=== PATIENT | female | born 1960 | race African-American/Black ===

== ENCOUNTER 2017-08-11 11:22 | Emergency (ER) | payer MEDICAID, OTHER ==
[~2017-08-11] VITALS: Ht 172.7 cm; Wt 92.1 kg
[~2017-08-11 11:22] MED LIST: BENADRYL25 MG ORAL; EPIPEN 2-P0.3 MG/0.3 IM; HYDROCORTISONE28 G2 TP; MEDROL DOSEPAK4 MG ORAL; NKM; RANITIDINE HCL150 MG ORAL
--- NOTE | 2017-08-11 12:07 | Emergency Room Report ---
History of Present Illness General Chief Complaint: Pain Source: Patient (Vik Hicks) Present Illness HPI 56-year-old female patient presents to ER complaining of swelling on left knee. Reports symptoms have been present for the past 2 months, has previously been seen by primary care provider is still waiting authorizations for further referrals. Reports currently pain is treated with [place] as. Reports was sent by physician to ER today for further treatment because authors sensations of not come through. Patient denies fever, chest pain, vomiting. Denies other acute symptoms. Reports pain with ambulation, states she walks with a cane. Denies acute injury. (Vik Hicks) Allergies: Coded Allergies: PENICILLINS (Unverified Allergy, Unknown, 08/07/13) UNKNOWN Patient History Past Medical History: see triage record Last Menstrual Period: may 2017 Reviewed Nursing Documentation: PMH: Agreed; PSxH: Agreed (Vik Hicks) Nursing Documentation-PMH Past Medical History: No History, Except For Hx Hypertension: Yes Hx Asthma: Yes Hx Diabetes: Yes - DM 2 Hx Gastrointestinal Problems: Yes - Hyperlidemia History Of Psychiatric Problem: Yes - Anxiety, Major depressive disorder Hx Neurological Problems: Yes - Spondylosis wiith radicuploathy of the neck, spinal stenosis of the lower b (Vik Hicks) Review of Systems All Other Systems: negative except mentioned in HPI (Vik Hicks) Physical Exam Vital Signs Date Time Temp Pulse Resp B/P (MAP) Pulse Ox O2 Delivery O2 Flow Rate FiO2 08/11/17 11:36 98.3 71 18 137/79 92 Room Air 98.2 Sp02 EP Interpretation: reviewed, normal General Appearance: well appearing, no apparent distress, alert, GCS 15, non- toxic Head: normocephalic, atraumatic ENT: hearing grossly normal, normal pharynx, no angioedema, normal voice, uvula midline, moist mucus membranes Neck: full range of motion Respiratory: lungs clear, normal breath sounds, no rhonchi, no respiratory distress, no accessory muscle use, no wheezing, speaking full sentences Cardiovascular #1: regular rate, rhythm, no edema Cardiovascular #2: 2+ dorsalis pedis (R), 2+ dorsalis pedis (L) Musculoskeletal: back normal, digits/nails normal, gait/station normal, normal range of motion, other - neurovascularly intact Reflexes: 2+ knee (R), 2+ knee (L) Skin: other - 3cm area of erythema and edema on anterior inferior left knee, no fluctuance, does not come to a point, no drainage, TTP, no open lesion removed, no central clearing, no crepitus, warmth to touch (Vik Hicks) Medical Decision Making PA Attestation Dr. Hanson is my supervising Physician whom patient management has been discussed with. (Vik Hicks) Diagnostic Impression: Primary Impression: Cellulitis ER Course Pt. presents to the ED c/o left knee pain. Ddx considered but are not limited to fracture, sprain, strain, contusion, dislocation cellulitis, effusion. No fever, nontoxic appearing, low suspicion for septic joint. Vital signs: are WNL, pt. is afebrile Ordered X-ray and pain medication. ER COURSE Provided with pain medication. An X-ray of the left knee shows, mild soft tissue swelling, no acute disease per the preliminary reading. consult with Dr. Hanson Evaluated Patient, Likely Cellulitis, Will Provide treatment at discharge. patient reports an allergy to sulfa and penicillins, states she has never taken penicillins before, does not know reaction she has. ER precautions given. Return ER for new or worsening of symptoms including but not limited to fever, chest pain, shortness of breath, intractable vomiting, worsening rash, red streaking. Declines crutches, states she has can she is able to walk with her cane. Patient instructed on RICE method: rest, ice, compression, elevation. Patient instructed on rest, ice and heat. Patient instructed to be WBAT Followup with primary care provider. Discuss referral to ortho/pain management/ PT as needed. Discuss further imaging with MRI/CT as needed. DISCHARGE: -Rx provided for Tylenol -Rx provided for Keflex -Rx provided for clindamycin to cover for MRSA, patient reports allergy so will not provide Bactrim. At this time pt. is stable for d/c to home. Patient is resting comfortably, in no acute distress, nontoxic appearing, talking without difficulty. Will provide printed patient care instructions, and any necessary prescriptions. Patient instructed to follow with primary care provider in 3 - 5 days and to request further follow-up as needed. Care plan and follow up instructions have been discussed with the patient prior to discharge. Take medications as directed. Patient questions asked and answered. Patient reports understanding and agreement to treatment plan. ER precautions given, patient instructed to return to ER immediately for any new or worsening of symptoms. - Please note that this Emergency Department Report was dictated using [employer] sales manager technology software, occasionally this can lead to erroneous entry secondary to interpretation by the dictation equipment. (Vik Hicks) Other X-Ray Diagnostic Results Other X-Ray Diagnostic Results : X-Ray ordered: left knee # of Views/Limited Vs Complete: 3 View Indication: Pain EP Interpretation: Yes PA Xray: Interpretation reviewed, by supervising MD, and agrees with findings. Interpretation: no dislocation, no fractures, other - mild soft tissue swelling Impression: No acute disease PA Scribe Text Twin Hicks PA-C (Vik Hicks.Sandra) Other X-Ray Diagnostic Results : Electronically Signed by: Scribe documentation reviewed by me and is accurate, Bruce Hanson MD. (Bruce Hanson M.D.) Last Vital Signs Date Time Temp Pulse Resp B/P (MAP) Pulse Ox O2 Delivery O2 Flow Rate FiO2 08/11/17 11:36 98.3 71 18 137/79 92 Room Air 98.2 (Vik Hicks.ANahun) Disposition: HOME, SELF-CARE Condition: Stable Scripts Cephalexin* (KEFLEX*) 500 Mg Capsule 500 MG ORAL EVERY 12 HOURS, #14 CAP 0 Refills Prov: Vik Hicks.ANahun 08/11/17 Clindamycin Hcl* (CLINDAMYCIN HCL*) 150 Mg Capsule 300 MG ORAL BID for 7 Days, #28 CAP Prov: Vik Hicks.A. 08/11/17 Acetaminophen* (TYLENOL EXTRA STRENGTH*) 500 Mg Tablet 500 MG ORAL Q8H PRN for Prn Headache/Temp > 101, #30 TAB 0 Refills Prov: Vik Hicks.A. 08/11/17 Patient Instructions: Cellulitis, [id number], Knee Pain, [id number] Additional Instructions: Patient instructed to follow up with primary care provider and discuss further referral to orthopedics. Patient instructed on RICE method: rest, ice, compression, elevation. Patient instructed to WBAT. Take medications as directed. Patient questions asked and answered. ER precautions given, patient instructed to return to ER immediately for any new or worsening of symptoms. Vik Hicks Aug 11, 2017 12:07 Bruce Hanson M.D. Aug 14, 2017 08:48
[2017-08-11] MEDS ORDERED: Norco 5mg/325mg tab ORAL ONE (12:15)
[2017-08-11] MEDS ORDERED: TYLENOL EXTRA500 MG ORAL (13:14)
[2017-08-11] MEDS ORDERED: CLINDAMYCIN HC150 MG ORAL (13:14)
[2017-08-11] MEDS ORDERED: CEPHALEXIN500 MG ORAL (13:18)
[2017-08-11 16:05] VITALS: BP 127/74
--- NOTE | 2017-08-11 18:05 | Diagnostic Imaging Report ---
Indication: Pain Technique: 3 views of the knee Comparison: None Findings: Positioning on both attempts the lateral view suboptimal; patient was discharged before image could be repeated. No definite acute fractures. No dislocations. Joint spaces are preserved Impression: Somewhat limited exam. No definite acute process
== END 2017-08-11 14:00 | disposition home or self-care (01) ==
LOC: EMR 13:33
DX: L03.116 Cellulitis of left lower limb (principal); I10 Essential (primary) hypertension; J45.909 Unspecified asthma, uncomplicated; E11.9 Type 2 diabetes mellitus without complications; E78.5 Hyperlipidemia, unspecified; F41.9 Anxiety disorder, unspecified; Z88.0 Allergy status to penicillin; F32.9 Major depressive disorder, single episode, unspecified
CPT/HCPCS: 99284

== ENCOUNTER 2018-04-24 12:33 | Emergency (ER) | payer MEDICAID ==
[~2018-04-24] VITALS: Ht 172.7 cm; Wt 88.0 kg
[~2018-04-24 12:33] MED LIST changes: +CEPHALEXIN500 MG ORAL; +CLINDAMYCIN HC150 MG ORAL; +TYLENOL EXTRA500 MG ORAL
[2018-04-24] MEDS ORDERED: METFORMIN HCL1000 M1 ORAL (12:49)
[2018-04-24] MEDS ORDERED: VENTOLIN HFA18 GM INH (12:49)
[2018-04-24 12:50] VITALS: BP 123/78
--- NOTE | 2018-04-24 12:50 | NUR ---
ED Nurse Note: PT WALKED IN TO ER TODAY FROM HOME. AOX4. PT C/O INCREASED FATIGUE AND BLURRED VISION X 2-3 WEEKS AGO. PT STATES BG THIS AM AT HOME WAS 385. ACCUCHECK IN ER: 353. PT STATES SHE INFORMED HER PMD AND WAS TOLD TO COME TO ER FOR TREATMENT.
[2018-04-24 14:12] LABS: BASOPHILS % (AUTO) 1.4 % (0.0-2.0); EOSINOPHILS % (AUTO) 2.1 % (0.0-3.0); HEMATOCRIT 41.7 % (37.0-47.0); HEMOGLOBIN 13.6 G/DL (12.0-16.0); LYMPHOCYTES % (AUTO) 41.8 % (20.0-45.0); MEAN CORPUSCULAR VOLUME 91 FL (80-99); MONOCYTES % (AUTO) 7.4 % (1.0-10.0); NEUTROPHILS % (AUTO) 47.4 % (45.0-75.0); PLATELET COUNT 249 K/UL (150-450); RED BLOOD COUNT 4.57 M/UL (4.20-5.40); RED CELL DISTRIBUTION WIDTH 12.4 % (11.6-14.8); WHITE BLOOD COUNT 5.1 K/UL (4.8-10.8)
[2018-04-24 14:23] LABS: ANION GAP 10 mmol/L (5-15); BLOOD UREA NITROGEN 13 mg/dL (7-18); CALCIUM 9.1 MG/DL (8.5-10.1); CARBON DIOXIDE 27 MMOL/L (21-32); CHLORIDE 100 MMOL/L (98-107); CREATININE 0.8 MG/DL (0.55-1.30); POTASSIUM 4.1 MMOL/L (3.5-5.1); SODIUM 137 MMOL/L (136-145)
[2018-04-24 14:28] LABS: ALANINE AMINOTRANSFERASE 28 U/L (12-78); ALBUMIN 3.7 G/DL (3.4-5.0); ALKALINE PHOSPHATASE 83 U/L (46-116); ASPARTATE AMINO TRANSFERASE 12 U/L (15-37); BILIRUBIN,TOTAL 0.3 MG/DL (0.2-1.0)
[2018-04-24 14:37] LABS: APPEARANCE,URINE CLEAR; BILIRUBIN, URINE NEGATIVE (NEGATIVE); COLOR,URINE PALE YELLOW; GLUCOSE, URINE (UA) 4+ (NEGATIVE); KETONES,URINE 2+ (NEGATIVE); LEUKOCYTE ESTERASE ,URINE 2+ (NEGATIVE); NITRITE,URINE NEGATIVE (NEGATIVE); PH,URINE 5 (4.5-8.0); PROTEIN,URINE 1+ (NEGATIVE); UROBILINOGEN,URINE NORMAL MG/DL (0.0-1.0)
--- NOTE | 2018-04-24 15:20 | NUR ---
ED Nurse Note: REPORT GIVEN TO KULWANT QURESHI.
[2018-04-24 15:37] VITALS: BP 122/75
--- NOTE | 2018-04-24 15:58 | Emergency Room Report ---
History of Present Illness General Chief Complaint: General Complaint Source: Patient, Medical Record Present Illness Allergies: Coded Allergies: PENICILLINS (Unverified Allergy, Unknown, 08/07/13) UNKNOWN Pork (Verified Allergy, Unknown, 04/24/18) SULFA (SULFONAMIDE ANTIBIOTICS) (Unverified Allergy, Unknown, 04/24/18) Uncoded Allergies: SULFA (Allergy, Unknown, 04/24/18) Nursing Documentation-[facility] Past Medical History: No History, Except For Hx Hypertension: Yes Hx Pacemaker: No Hx Asthma: Yes Hx COPD: No Hx Diabetes: Yes - DM 2 Hx Cancer: No Hx Gastrointestinal Problems: Yes - Hyperlidemia Hx Dialysis: No History Of Psychiatric Problem: Yes - Anxiety, Depression Hx Neurological Problems: Yes - Spondylosis wiith radicuploathy of the neck, spinal stenosis of the lower b Hx Cerebrovascular Accident: No Physical Exam Vital Signs Date Time Temp Pulse Resp B/P (MAP) Pulse Ox O2 Delivery O2 Flow Rate FiO2 04/24/18 12:44 97.9 70 14 122/85 94 Room Air Medical Decision Making Diagnostic Impression: Primary Impression: Hyperglycemia Additional Impression: URI (upper respiratory infection) Laboratory Tests Test 04/24/18 13:11 04/24/18 14:11 White Blood Count 5.1 K/UL (4.8-10.8) Red Blood Count 4.57 M/UL (4.20-5.40) Hemoglobin 13.6 G/DL (12.0-16.0) Hematocrit 41.7 % (37.0-47.0) Mean Corpuscular Volume 91 FL (80-99) Mean Corpuscular Hemoglobin 29.7 PG (27.0-31.0) Mean Corpuscular Hemoglobin Concent 32.5 G/DL (32.0-36.0) Red Cell Distribution Width 12.4 % (11.6-14.8) Platelet Count 249 K/UL (150-450) Mean Platelet Volume 10.4 FL (6.5-10.1) H Neutrophils (%) (Auto) 47.4 % (45.0-75.0) Lymphocytes (%) (Auto) 41.8 % (20.0-45.0) Monocytes (%) (Auto) 7.4 % (1.0-10.0) Eosinophils (%) (Auto) 2.1 % (0.0-3.0) Basophils (%) (Auto) 1.4 % (0.0-2.0) Sodium Level 137 MMOL/L (136-145) Potassium Level 4.1 MMOL/L (3.5-5.1) Chloride Level 100 MMOL/L (98-107) Carbon Dioxide Level 27 MMOL/L (21-32) Anion Gap 10 mmol/L (5-15) Blood Urea Nitrogen 13 mg/dL (7-18) Creatinine 0.8 MG/DL (0.55-1.30) Estimate Glomerular Filtration Rate > 60 mL/min (>60) Glucose Level 341 MG/DL (74-106) H Calcium Level 9.1 MG/DL (8.5-10.1) Magnesium Level 1.4 MG/DL (1.8-2.4) L Total Bilirubin 0.3 MG/DL (0.2-1.0) Aspartate Amino Transferase (AST) 12 U/L (15-37) L Alanine Aminotransferase (ALT) 28 U/L (12-78) Alkaline Phosphatase 83 U/L (46-116) Total Protein 7.5 G/DL (6.4-8.2) Albumin 3.7 G/DL (3.4-5.0) Globulin 3.8 g/dL Albumin/Globulin Ratio 1.0 (1.0-2.7) Acetone Level Negative (NEGATIVE) Urine Color Pale yellow Urine Appearance Clear Urine pH 5 (4.5-8.0) Urine Specific [place] 1.015 (1.005-1.035) Urine Protein 1+ (NEGATIVE) H Urine Glucose (UA) 4+ (NEGATIVE) H Urine Ketones 2+ (NEGATIVE) H Urine Blood 1+ (NEGATIVE) H Urine Nitrite Negative (NEGATIVE) Urine Bilirubin Negative (NEGATIVE) Urine Urobilinogen Normal MG/DL (0.0-1.0) Urine Leukocyte Esterase 2+ (NEGATIVE) H Urine RBC 2-4 /HPF (0 - 2) H Urine WBC 2-4 /HPF (0 - 2) Urine Squamous Epithelial Cells Few /LPF (NONE/OCC) Urine Bacteria Occasional /HPF (NONE) EKG Diagnostic Results Rate: normal Rhythm: NSR ST Segments: no acute changes Rhythm Strip Diag. Results EP Interpretation: yes Rate: 60's Rhythm: NSR, no PVC's, no ectopy Last Vital Signs Date Time Temp Pulse Resp B/P (MAP) Pulse Ox O2 Delivery O2 Flow Rate FiO2 04/24/18 15:37 98.2 72 17 122/75 97 Room Air [facility] Yumiko Gallegos DO Apr 24, 2018 15:58
[2018-04-24] MEDS ORDERED: Naproxen 500mg tab ONE (16:18)
[2018-04-24] MEDS ORDERED: Naproxen 500mg tab ORAL ONE (16:30)
--- NOTE | 2018-04-24 16:56 | Diagnostic Imaging Report ---
Indication: Cough Technique: One view of the chest Comparison: none Findings: Lungs and pleural spaces are clear. Heart size is normal Impression: No acute process
[2018-04-24] MEDS ORDERED: NIACIN100 MG ORAL (17:31)
[2018-04-24] MEDS ORDERED: OMEGA 3 500 SO1 EACH PO (17:31)
[2018-04-24] MEDS ORDERED: VALIUM5 MG ORAL (17:31)
[2018-04-24] MEDS ORDERED: ALBUTEROL2.5 MG/3 M INH (17:31)
[2018-04-24] MEDS ORDERED: OXYCONTIN30 MG ORAL (17:31)
[2018-04-24 18:00] VITALS: BP 122/75
--- NOTE | 2018-04-24 18:00 | NUR ---
ED Nurse Note: Patient is leaving Dr. Missael ARMIJO informed patient regarding the risks of leaving, patient was given a discharge note. patient is alert and oriented x4, ambulatory with a steady gait, VSS
== END 2018-04-24 18:20 | disposition left against medical advice (07) ==
LOC: EMR 13:20 → CANBEDREQ 18:28
DX: R73.9 Hyperglycemia, unspecified (principal); J06.9 Acute upper respiratory infection, unspecified; E11.9 Type 2 diabetes mellitus without complications; I10 Essential (primary) hypertension
CPT/HCPCS: 36415; 71045; 80053; 81003; 82009; 82962; 83735; 85025; 93005; 96360; 99283